=== PATIENT | male | born 1960 | race African-American/Black ===

== ENCOUNTER 2018-04-28 03:43 | Emergency (ER) | payer MEDICAID ==
[~2018-04-28] VITALS: Ht 175.3 cm; Wt 82.0 kg
[~2018-04-28 03:43] MED LIST: ARIP20TA2 PO; ASPI-1159 PO; ATOR10TA PO; HYDR25TA PO; METF-416 PO; SERT100T PO
[2018-04-28] MEDS ORDERED: TETANUS, DIPHTHERIA, PERTUSSIS VAC/PF 0.5ML (>7YR OLD) IM ONE (07:15)
[2018-04-28 08:48] VITALS: BP 154/76
== END 2018-04-28 08:51 | disposition home or self-care (01) ==
LOC: ER 03:43
DX: S91.312A Laceration without foreign body, left foot, initial encounter (principal); X99.0XXA Assault by sharp glass, initial encounter; Y93.89 Activity, other specified; Y92.480 Sidewalk as the place of occurrence of the external cause; E11.9 Type 2 diabetes mellitus without complications; I10 Essential (primary) hypertension; Z23 Encounter for immunization
CPT/HCPCS: 73630; 90471; 90715; 99283; A4217; Z7610

== ENCOUNTER 2019-05-02 19:55 | Inpatient (IN) | payer MEDICAID ==
[~2019-05-02] VITALS: Ht 170.2 cm; Wt 79.4 kg
[~2019-05-02 19:55] MED LIST changes: -ASPI-1159 PO; +ASPI-1497 PO
[2019-05-02] MEDS ORDERED: SODIUM CHLORIDE 0.9% 1,000 ML IV ONE (20:55)
[2019-05-02 22:18] LABS: BASOPHILS % 0.9 % (0.0-2.0); EOSINOPHILS % 1.1 % (0.0-5.0); HEMATOCRIT. 38.5 % (42.0-52.0); HEMOGLOBIN. 13.4 g/dL (14.0-18.0); LYMPHOCYTES % 34.6 % (20.0-50.0); MEAN CORPUSCULAR HEMOGLOBIN 30.8 pg (28.0-32.0); MEAN CORPUSCULAR VOLUME 88.8 fL (80.0-94.0); MEAN PLATELET VOLUME 8.2 fl (7.4-10.4); NEUTROPHILS % 55.4 % (40.0-76.0); PLATELET 252 x1000/uL (130-400); RED BLOOD CELL COUNT 4.34 mill/uL (4.7-6.1)
[2019-05-02 22:23] LABS: CHLORIDE 109 mEq/L (98-107)
[2019-05-02 22:26] LABS: PROTHROMBIN TIME 10.4 sec (9.6-11.0)
[2019-05-02] MEDS ORDERED: ASPIRIN 325MG EC TABLET PO ONE (23:45)
[2019-05-03] MEDS ORDERED: ONDANSETRON HCL 4MG/2ML INJ IV PRN (10:15)
[2019-05-03] MEDS ORDERED: ACETAMINOPHEN 325MG TABLET PO PRN (10:15)
[2019-05-03] MEDS: AMLODIPINE 5MG TABLET PO SCH (10:46)
[2019-05-03 11:32] LABS: LDL CHOLESTEROL 50 mg/dL (5-100)
[2019-05-03 11:34] LABS: HDL CHOLESTEROL 56 mg/dL (40-59)
[2019-05-03 14:58] VITALS: BP 152/78
[2019-05-03 15:07] VITALS: BP 152/78
[2019-05-03 16:20] VITALS: BP 148/78
[2019-05-03] MEDS ORDERED: DEXTROSE 50% WATER 50ML SYRINGE IV PRN ×2 (16:45)
[2019-05-03] MEDS: BLOOD SUGAR DIAGNOSTIC STRIP TEST SCH ×2 (17:33→20:49)
[2019-05-03] MEDS: INSULIN LISPRO 100 UNITS/ML SUBCUT SCH ×2 (17:36→20:49)
[2019-05-03] MEDS: METFORMIN HCL 500MG TABLET PO SCH (17:39)
[2019-05-03 20:00] VITALS: BP 136/73
[2019-05-03] MEDS ORDERED: INFLUENZA VIRUS VACCINE(AFLURIA) 0.5ML SYR IM ONE (20:30)
[2019-05-03] MEDS ORDERED: PNEUMOCOCCAL 23-VAL P-SAC VAC 0.5 ML IM ONE (20:30)
[2019-05-03] MEDS ORDERED: ATORVASTATIN CALCIUM 10MG TABLET PO SCH (21:00)
[2019-05-04] VITALS: BP 131/69
[2019-05-04 04:00] VITALS: BP 127/77
[2019-05-04 06:20] LABS: BASOPHILS % 0.7 % (0.0-2.0); EOSINOPHILS % 1.5 % (0.0-5.0); HEMOGLOBIN. 13.2 g/dL (14.0-18.0); LYMPHOCYTES % 40.2 % (20.0-50.0); MEAN CORPUSCULAR HEMOGLOBIN 30.7 pg (28.0-32.0); MEAN CORPUSCULAR VOLUME 88.8 fL (80.0-94.0); MEAN PLATELET VOLUME 8.4 fl (7.4-10.4); MONOCYTES % 8.5 % (2.0-8.0); NEUTROPHILS % 49.1 % (40.0-76.0); PLATELET 242 x1000/uL (130-400); RED BLOOD CELL COUNT 4.29 mill/uL (4.7-6.1); RED CELL DISTRIBUTION WIDTH 13.8 % (11.6-14.6)
[2019-05-04 06:21] LABS: CHLORIDE 107 mEq/L (98-107)
[2019-05-04] MEDS: BLOOD SUGAR DIAGNOSTIC STRIP TEST SCH ×2 (07:20→12:20)
[2019-05-04] MEDS: INSULIN LISPRO 100 UNITS/ML SUBCUT SCH ×2 (07:50→12:50)
[2019-05-04 08:00] VITALS: BP 107/73
[2019-05-04] MEDS: METFORMIN HCL 500MG TABLET PO SCH (08:45)
[2019-05-04] MEDS ORDERED: HYDROCHLOROTHIAZIDE 25MG TABLET PO SCH (09:00)
[2019-05-04] MEDS: AMLODIPINE 5MG TABLET PO SCH (09:00)
[2019-05-04] MEDS ORDERED: ASPIRIN 81MG TABLET PO SCH (09:00)
[2019-05-04] MEDS ORDERED: ARIPIPRAZOLE 5MG TABLET PO SCH (09:00)
[2019-05-04] MEDS ORDERED: SERTRALINE HCL 100MG TABLET PO SCH (09:00)
[2019-05-04 12:00] VITALS: BP 113/78
[2019-05-04 15:25] VITALS: BP 113/78
== END 2019-05-04 16:20 | disposition home or self-care (01) | DRG 48 ==
LOC: ER 19:55 → 6WST 05-03 01:28 → ENRESERV 05-03 13:40
PROVIDERS: ADMIT Internal Medicine; ATTEND Internal Medicine
DX: G90.8 Other disorders of autonomic nervous system (principal); E87.8 Other disorders of electrolyte and fluid balance, not elsewhere classified; E78.5 Hyperlipidemia, unspecified; I10 Essential (primary) hypertension; F20.9 Schizophrenia, unspecified; E11.9 Type 2 diabetes mellitus without complications; Z79.82 Long term (current) use of aspirin; Z79.84 Long term (current) use of oral hypoglycemic drugs; Z79.899 Other long term (current) drug therapy; Z79.02 Long term (current) use of antithrombotics/antiplatelets; Z79.52 Long term (current) use of systemic steroids; Z87.820 Personal history of traumatic brain injury; Z87.828 Personal history of other (healed) physical injury and trauma
CPT/HCPCS: 36415; 71045; 80048; 80053; 80061; 82962; 83036; 83880; 84443; 84484; 85025; 93005; 93306; 93880; J7030

== ENCOUNTER 2019-05-15 02:02 | Emergency (ER) | payer MEDICAID ==
[~2019-05-15] VITALS: Ht 170.2 cm; Wt 77.0 kg
[2019-05-15] MEDS ORDERED: IBUPROFEN 600MG TABLET PO STA (03:17)
[2019-05-15 04:00] VITALS: BP 142/87
== END 2019-05-15 04:50 | disposition home or self-care (01) ==
LOC: ER 02:02
DX: M79.671 Pain in right foot (principal); M79.672 Pain in left foot; E11.9 Type 2 diabetes mellitus without complications; Z79.82 Long term (current) use of aspirin; Z79.899 Other long term (current) drug therapy
CPT/HCPCS: 99283

== ENCOUNTER 2020-10-13 09:51 | Emergency (ER) | payer MEDICAID ==
[~2020-10-13] VITALS: Ht 172.7 cm; Wt 82.0 kg
[2020-10-13] MEDS ORDERED: ACETAMINOPHEN 500MG TABLET PO ONE (10:30)
[2020-10-13] MEDS ORDERED: KETOROLAC 30MG/ML VIAL IM ONE (10:30)
[2020-10-13] MEDS ORDERED: IBUP-2029 MT (11:10)
[2020-10-13 12:04] VITALS: BP 145/81
== END 2020-10-13 12:06 | disposition home or self-care (01) ==
LOC: ER 09:51
DX: T14.8XXA Other injury of unspecified body region, initial encounter (principal); X58.XXXA Exposure to other specified factors, initial encounter; Y93.89 Activity, other specified; Y92.89 Other specified places as the place of occurrence of the external cause; Z87.820 Personal history of traumatic brain injury
CPT/HCPCS: 73590; 96372; 99283; J1885

== ENCOUNTER 2021-01-22 23:12 | Emergency (ER) | payer MEDICAID ==
[~2021-01-22] VITALS: Ht 182.9 cm; Wt 110.0 kg
[~2021-01-22 23:12] MED LIST changes: +IBUP-2029 MT
[2021-01-22 23:29] VITALS: BP 142/86
== END 2021-01-23 05:10 | disposition home or self-care (01) ==
LOC: ER 23:12
DX: R03.0 Elevated blood-pressure reading, without diagnosis of hypertension (principal); Z59.02 Unsheltered homelessness
CPT/HCPCS: 99283

== ENCOUNTER 2021-01-27 19:03 | Emergency (ER) | payer MEDICAID ==
[~2021-01-27] VITALS: Ht 177.8 cm; Wt 91.0 kg
[2021-01-27 19:05] VITALS: BP 132/76
== END 2021-01-27 20:20 | disposition home or self-care (01) ==
LOC: ER 19:03
DX: M79.643 Pain in unspecified hand (principal); I10 Essential (primary) hypertension; Z79.899 Other long term (current) drug therapy
CPT/HCPCS: 99283

== ENCOUNTER 2021-09-21 12:44 | Emergency (ER) | payer MEDICAID ==
[~2021-09-21] VITALS: Ht 172.7 cm; Wt 75.0 kg
[2021-09-21 13:13] VITALS: BP 110/74
[2021-09-21 14:49] LABS: EOSINOPHILS % 1.1 % (0.0-5.0); HEMATOCRIT. 38.5 % (42.0-52.0); HEMOGLOBIN. 13.2 g/dL (14.0-18.0); LYMPHOCYTES % 18.2 % (20.0-50.0); MEAN CORPUSCULAR HEMOGLOBIN 30.1 pg (28.0-32.0); MEAN CORPUSCULAR VOLUME 88.1 fL (80.0-94.0); MEAN PLATELET VOLUME 7.4 fl (7.4-10.4); MONOCYTES % 7.6 % (2.0-8.0); NEUTROPHILS % 72.1 % (40.0-76.0); PLATELET 303 x1000/uL (130-400); RED BLOOD CELL COUNT 4.37 mill/uL (4.7-6.1); RED CELL DISTRIBUTION WIDTH 14.1 % (11.6-14.6)
[2021-09-21 14:55] LABS: CHLORIDE 105 mEq/L (98-107)
[2021-09-21 17:14] LABS: CLARITY URINE CLEAR (CLEAR); COLOR URINE YELLOW (YELLOW); KETONES URINE TRACE (NEGATIVE); LEUKOCYTE ESTERASE URINE NEGATIVE (NEGATIVE); NITRITE URINE NEGATIVE (NEGATIVE); OCCULT BLOOD URINE NEGATIVE (NEGATIVE); PROTEIN URINE 1+ (NEGATIVE)
[2021-09-21] MEDS ORDERED: SULF1TAB48 MT ×5 (17:17→17:27)
[2021-09-21] MEDS ORDERED: AMOX1TAB16 MT (17:17)
[2021-09-21] MEDS ORDERED: IBUP-2029 MT (17:18)
[2021-09-21] MEDS ORDERED: BACITRACIN ZINC OINT UDPKT TOP ONE (17:45)
== END 2021-09-21 17:48 | disposition home or self-care (01) ==
LOC: ER 12:44
DX: S99.812A Other specified injuries of left ankle, initial encounter (principal); S89.82XA Other specified injuries of left lower leg, initial encounter; W50.1XXA Accidental kick by another person, initial encounter; E11.621 Type 2 diabetes mellitus with foot ulcer; L97.529 Non-pressure chronic ulcer of other part of left foot with unspecified severity; Y93.89 Activity, other specified; Y92.89 Other specified places as the place of occurrence of the external cause
CPT/HCPCS: 36415; 71045; 73590; 73610; 73630; 80053; 81003; 85025; 93971; 99285

== ENCOUNTER 2025-02-10 20:08 | Emergency (ER) | payer MEDICAID ==
[~2025-02-10] VITALS: Ht 170.2 cm; Wt 72.0 kg
[~2025-02-10 20:08] MED LIST changes: +ABIL10 MT; -ARIP20TA2 PO; -IBUP-2029 MT; +QUET100T MT
[2025-02-10 20:17] VITALS: O2SAT 99
[2025-02-10 20:37] VITALS: BP 159/79; PULSE 64; RESP 16; TEMP 36.7; O2SAT 100
[2025-02-10 22:36] LABS: INFLUENZA TYPE A Presumptive Negative (Pres. Neg.)
[2025-02-10 22:37] LABS: INFLUENZA TYPE B Presumptive Negative (Pres. Neg.)
[2025-02-10 22:38] LABS: RESPIRATORY SYNCYTIAL VIRUS Not Detected (Not Detectd)
[2025-02-10] MEDS ORDERED: ACET-2708 MT (22:57)
== END 2025-02-10 23:15 | disposition home or self-care (01) ==
LOC: ER 20:08
DX: B34.9 Viral infection, unspecified (principal); E11.9 Type 2 diabetes mellitus without complications; Z79.82 Long term (current) use of aspirin; Z79.84 Long term (current) use of oral hypoglycemic drugs; Z79.899 Other long term (current) drug therapy; Z20.822 Contact with and (suspected) exposure to COVID-19
CPT/HCPCS: 71045; 87420; 87426; 87804; 99284